=== PATIENT | male | born 1960 | race Caucasian/White ===

== ENCOUNTER 2017-02-07 10:06 | Emergency (ER) | payer OTHER ==
[2017-02-07 11:23] LABS: Hematocrit 41 % (42-52); Hemoglobin 14.5 g/dl (14.0-18.0); Mean Corpuscular HGB Conc 36 g/dl (31-36); Mean Corpuscular Hemoglobin 31 pg (27-31); Mean Corpuscular Volume 86 fL (80-94); Mean Platelet Volume 8 um3 (7.4-10.4); Red Blood Count 4.75 10^6/ul (4.0-5.4); Red Cell Distribution Width 13 % (10.5-15); White Blood Count 4.7 10^3/ul (3.5-10.8)
[2017-02-07 11:38] LABS: Albumin 4.2 g/dL (3.2-5.2); BUN/Creatinine Ratio 12.6 (8-20); C Reactive Protein 1.67 mg/L (< 5.00); Calcium 10.1 mg/dL (8.6-10.3); EGFR African American 88.1 (>60); EGFR Non-African American 68.5 (>60); Globulin 3.3 g/dL (2-4); Total Bilirubin 0.5 mg/dL (0.2-1.0); Total Protein 7.5 g/dL (6.4-8.9)
[2017-02-07 11:43] LABS: Potassium 2.7 mmol/L (3.5-5.0)
[2017-02-07] MEDS ORDERED: KCL 20 MEQ/100 ML IVPREMIX* 20 MEQ/100 ML BAG IV ONE (12:10)
[2017-02-07] MEDS ORDERED: Potassium Chlor TAB* 20 MEQ TAB.ER PO ONE (12:10)
[2017-02-07 15:22] VITALS: BP 119/102
--- NOTE | 2017-02-07 15:25 | ED ---
Claudio Longoria Nikita, scribed for Reynaldo Vincent MD on 02/07/17 at 1057 . Throat Pain/Nasal Congestion - HPI Summary HPI Summary: This patient is a 56 year old M presenting to ED with a chief complaint of L ear pain since 8 days ago. The CC is described as a humming feeling and ringing. The patient rates the pain 3/10 in severity. Symptoms aggravated by movement of his head. Symptoms alleviated by nothing (pt was on AUGMENTIN PO AND CIPRODEX given by Dr. Greenberg that did not relieve pain). Patient reports dizziness (has worsened earlier today) and fever in the afternoon. Pt was sent to ED by Dr. Greenberg for CT of L ear. Pt was given Doxycycline PO, Augmentin PO , and Ciprodex which did not help alleviate symptoms. 1 week ago, pt was given Amoxicillin (3 days) by [facility] 1 week ago. PMHx of HTN, HLD, and asthma. - History of Current Complaint Chief Complaint: EDEarPain Time Seen by Provider: 02/07/17 10:16 Hx Obtained From: Patient Onset/Duration: Sudden Onset, Lasting Weeks - 8 days ago, Still Present Severity: Mild - 3/10 - Allergies/Home Medications Allergies/Adverse Reactions: Allergies Allergy/AdvReac Type Severity Reaction Status Date / Time No Known Allergies Allergy Verified 08/04/16 08:21 PMH/Surg Hx/FS Hx/Imm Hx Endocrine/Hematology History: Denies: Hx Diabetes, Hx Anemia Cardiovascular History: Reports: Hx Hypertension - MEDICATED Denies: Hx Pacemaker/ICD Respiratory History: Reports: Hx Asthma - MEDICATED GI History: Denies: Hx Jaundice Sensory History: Denies: Hx Hearing Aid Psychiatric History: Denies: Hx Panic Disorder - Cancer History Cancer Type, Location and Year: MELANOMA REMOVED 2007 - Surgical History Surgery Procedure, Year, and Place: sinus surgery. right knee atrhroscopy. appendectomy. eye surgery-LAZY EYE REPAIR. LSP LAMINECTOMY surgery Infectious Disease History: No Infectious Disease History: Denies: Traveled Outside the [place] in Last 30 Days - Family History Known Family History: Positive: Cardiac Disease, Hypertension - Social History Alcohol Use: Occasionally Substance Use Type: Reports: None Smoking Status (MU): Never Smoked Tobacco Review of Systems Positive: Fever Positive: Other - L ear pain ("humming feeling" and ringing) Neurological: Other - Dizziness (worsened since earlier today) All Other Systems Reviewed And Are Negative: Yes Physical Exam Triage Information Reviewed: Yes Vital Signs On Initial Exam: Initial Vitals Temp Pulse Resp BP Pulse Ox 97.2 F 81 16 159/96 100 02/07/17 10:08 02/07/17 10:08 02/07/17 10:08 02/07/17 10:08 02/07/17 10:08 Vital Signs Reviewed: Yes Appearance: Positive: Well-Appearing, No Pain Distress Skin: Positive: Warm, Skin Color Reflects Adequate Perfusion, Dry Head/Face: Positive: Normal Head/Face Inspection Eyes: Positive: Normal ENT: Positive: TM bulging - a little, Other - Pinna is diffusely a little swollen, tender over tragus Neck: Positive: Supple, Nontender Respiratory/Lung Sounds: Positive: Clear to Auscultation, Breath Sounds Present Cardiovascular: Positive: RRR Abdomen Description: Positive: Nontender, Soft Bowel Sounds: Positive: Present Musculoskeletal: Positive: Normal Neurological: Positive: Normal, Sensory/Motor Intact, Alert, Oriented to Person Place, Time, CN Intact II-III Psychiatric: Positive: Affect/Mood Appropriate - [place] Coma Scale Coma Scale Total: 15 Diagnostics - Vital Signs Vital Signs Temp Pulse Resp BP Pulse Ox 02/07/17 10:08 97.2 F 81 16 159/96 100 - Laboratory Lab Results: Lab Results 02/07/17 02/07/17 Range/Units 11:13 11:13 WBC 4.7 (3.5-10.8) 10^3/ul RBC 4.75 (4.0-5.4) 10^6/ul Hgb 14.5 (14.0-18.0) g/dl Hct 41 L (42-52) % MCV 86 (80-94) fL MCH 31 (27-31) pg MCHC 36 (31-36) g/dl RDW 13 (10.5-15) % Plt Count 259 (150-450) 10^3/ul MPV 8 (7.4-10.4) um3 Neut % (Auto) 65.3 (38-83) % Lymph % (Auto) 19.5 L (25-47) % [place] % (Auto) 10.7 H (1-9) % Eos % (Auto) 3.3 (0-6) % Baso % (Auto) 1.2 (0-2) % Absolute Neuts (auto) 3.0 (1.5-7.7) 10^3/ul Absolute Lymphs (auto) 0.9 L (1.0-4.8) 10^3/ul Absolute Monos (auto) 0.5 (0-0.8) 10^3/ul Absolute Eos (auto) 0.2 (0-0.6) 10^3/ul Absolute Basos (auto) 0.1 (0-0.2) 10^3/ul Absolute Nucleated RBC 0 10^3/ul Nucleated RBC % 0 Sodium 133 (133-145) mmol/L Potassium 2.7 L* (3.5-5.0) mmol/L Chloride 97 L (101-111) mmol/L Carbon Dioxide 29 (22-32) mmol/L Anion Gap 7 (2-11) mmol/L BUN 14 (6-24) mg/dL Creatinine 1.11 (0.67-1.17) mg/dL Est GFR ( Amer) 88.1 (>60) Est GFR (Non-Af Amer) 68.5 (>60) BUN/Creatinine Ratio 12.6 (8-20) Glucose 124 H (70-100) mg/dL Calcium 10.1 (8.6-10.3) mg/dL Total Bilirubin 0.50 (0.2-1.0) mg/dL AST 26 (13-39) U/L ALT 36 (7-52) U/L Alkaline Phosphatase 50 (34-104) U/L C-Reactive Protein 1.67 (< 5.00) mg/L Total Protein 7.5 (6.4-8.9) g/dL Albumin 4.2 (3.2-5.2) g/dL Globulin 3.3 (2-4) g/dL Albumin/Globulin Ratio 1.3 (1-3) Result Diagrams: 02/07/17 11:13 02/07/17 11:13 Lab Statement: Any lab studies that have been ordered have been reviewed, and results considered in the medical decision making process. - CT Temporal bone CT Interpretation Completed By: Radiologist - ED physician has reviewed this radiology report and agrees. EENT Course/Dx - Course Course Of Treatment: Mr. Jefferson has had a refractory left otitis externa and has developed vertiginous symptoms. He was sent in by his PMD for CT to R/O and abscess or mastoiditis. His CT showed only a small amount of fluid in his middle ear. His K was quite low likely from his HCTZ and this was replaced. He will continue the antibiotics and F/U with Dr. Greenberg. - Diagnoses Provider Diagnoses: Otitis externa Discharge - Discharge Plan Condition: Stable Disposition: HOME Prescriptions: Meclizine TAB* [Antivert 12.5 TAB*] 25 mg PO TID PRN #20 tab PRN Reason: Dizziness Patient Education Materials: Otitis Externa (ED), Vertigo (ED) Referrals: Nima Greenberg MD [Primary Care Provider] - 3 Days The documentation as recorded by the Claudio mcknight Nikita accurately reflects the service I personally performed and the decisions made by , Reynaldo Vincent MD.
--- NOTE | 2017-02-09 07:48 | RAD ---
HISTORY: Left ear pain and vertigo COMPARISONS: None TECHNIQUE: Multiple contiguous axial CT scans of the temporal bones were obtained without intravenous contrast, with coronal and sagittal multiplanar reformations. FINDINGS: RIGHT: EXTERNAL CANAL: Normal. No stenosis or soft tissue abnormality. TYMPANIC MEMBRANE: Normal. No thickening or retraction. OSSICLES: Normal. No erosion. WINDOWS: Normal. No narrowing. MIDDLE EAR: Normal. No abnormal soft tissue or fluid. The scutum is sharp. Prussak's space is clear. 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 MASTOID: Normal. No fluid, sclerosis, or soft tissue abnormality. INNER EAR: Normal. FACIAL CANAL: Normal. No dehiscence. IAC: Normal. No expansion or asymmetry. JUGULAR FORAMEN: Normal. No expansion or erosion. CAROTID CANAL: Normal. No erosion LEFT: EXTERNAL CANAL: Normal. No stenosis or soft tissue abnormality. TYMPANIC MEMBRANE: Normal. No thickening or retraction. OSSICLES: Normal. No erosion. WINDOWS: Normal. No narrowing. MIDDLE EAR: Normal. No abnormal soft tissue or fluid. The scutum is sharp. Prussak's space is clear. The middle ear fluid noted in the prior report is not clearly visualized on the current examination. 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 MASTOID: Normal. No fluid, sclerosis, or soft tissue abnormality. INNER EAR: Normal. FACIAL CANAL: Normal. No dehiscence. IAC: Normal. No expansion or asymmetry. JUGULAR FORAMEN: Normal. No expansion or erosion. CAROTID CANAL: Normal. No erosion ADDITIONAL FINDINGS: There is post surgical change to the paranasal sinuses. Consistent noted is an arachnoid cyst of the left middle cranial fossa. The visualized portion of the brain is otherwise unremarkable. IMPRESSION: UNREMARKABLE CT OF THE TEMPORAL BONES BILATERALLY. NO MASTOID EFFUSION OR PERIMASTOID FLUID COLLECTIONS.
== END 2017-02-07 15:20 | disposition home or self-care (01) ==
LOC: ED 10:06
DX: H60.92 Unspecified otitis externa, left ear (principal); H92.02 Otalgia, left ear; R50.9 Fever, unspecified; R42 Dizziness and giddiness
CPT/HCPCS: 36415; 70480; 80053; 85025; 86140; 99282; A9270-GY; J3480

== ENCOUNTER 2017-03-13 10:15 | Day surgery (SDC) | payer OTHER ==
--- NOTE | 2017-03-09 21:27 | HP ---
CC: Nima Greenberg MD; Trey Teixeira MD * ADMISSION HISTORY AND PHYSICAL: DATE OF ADMISSION: 03/13/17 ATTENDING SURGEON: Padmini Gifford MD * (DICTATED BY MIGUEL ANGEL MCCOLLUM) CHIEF COMPLAINT: Right inguinal hernia. HISTORY OF PRESENT ILLNESS: This is a 56-year-old hypertensive male who beginning about 3 to 4 weeks ago while splitting [employer] noted right groin discomfort. He described pain that occurred in the right groin and radiated to the back. He subsequently noticed a bulge in the right groin and was seen by Dr. Teixeira, who referred him to our office. Exam by Dr. Gifford on 03/03/17 confirmed the presence of a reducible right inguinal hernia. The hernia was mildly tender. He has not had any symptoms to suggest incarceration or strangulation. He has not had any changes in GI or function. Dr. Gifford discussed with him the indications, risks, benefits, and alternatives of surgery and he would like to proceed as scheduled with open repair of right inguinal hernia with mesh. PAST MEDICAL HISTORY: Hypertension, allergies and asthma (well controlled), hyperlipidemia, GERD (mostly controlled by lifestyle), systemic lupus erythematosus (cutaneous manifestations only), BPH, pancreatitis (5 to 6 years ago, suspected to be caused by an antihypertensive he was taking at that time), melanoma (of the back, resected in 2006 with regular followup). PAST SURGICAL HISTORY: Previous surgeries, excision of melanoma, lumbar diskectomy, sinus surgery. He has also undergone FNA x2 of a benign thyroid nodule. No report of surgical or anesthesia complications. CURRENT MEDICATIONS: 1. Hydrochlorothiazide 50 mg 2 tablets daily extended release. 2. Potassium chloride 20 mEq daily. 3. Rosuvastatin 5 mg daily. 4. Nasacort 2 sprays each nostril daily. 5. 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 6. Albuterol MDI 2 puffs p.r.n. (uses rarely). 7. Advair Diskus 100/50 inhalation once daily. 8. Montelukast 10 mg daily. 9. Losartan 100 mg daily. 10. Amlodipine 10 mg daily. DRUG ALLERGIES: None known. FAMILY HISTORY: Positive for hypertension and his father had a thoracic aneurysm. There is no known family history of anesthesia problems, bleeding, or clotting disorders. SOCIAL HISTORY: The patient is . 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 He denies use of tobacco. He drinks on an average 2 to 3 drinks per day. He denies other recreational drug use. REVIEW OF SYSTEMS: General: No recent constitutional symptoms or acute illnesses other than an episode of left ear infection with resultant vertigo, which has improved significantly after antibiotic treatment. He is scheduled to see the ENT office for followup. HEENT: As above, no additions. Cardiovascular: No chest pain, palpitations, history of PA or angina. He did undergo an echocardiogram in 2014, which was a normal study. Respiratory: No recent exacerbations of his asthma, which is well controlled. GI: Occasional nocturnal GERD, but not currently required any antacids or acid blockade. No recurrences of his pancreatitis. Colonoscopy done 2 years ago. It was recommended 10-year followup. : BPH and followed regularly by Dr. Teixeira with normal PSAs. Endocrine: No diabetes or thyroid dysfunction. He has been followed for a thyroid nodule with regular surveillance ultrasound. PHYSICAL EXAMINATION GENERAL: Well-nourished, obese male, in no acute distress. VITAL SIGNS: Height 73 inches, weight 245 pounds, BMI 32, blood pressure 120/76 , pulse 76, respirations 16. HEENT: Pupils equal and round, reactive. EOMs intact. No conjunctival pallor. No intraoral lesions. NECK: No lymphadenopathy in the cervical or supraclavicular regions. LUNGS: Clear to auscultation. No rales or wheezes. HEART: Regular rate and rhythm. No murmur noted. ABDOMEN: Soft, nontender to palpation. No palpable masses or organomegaly other than the right groin hernia as previously described. GENITALIA: Otherwise, not done. RECTAL: Otherwise, not done. BACK: No spinous process or CVA tenderness. EXTREMITIES: No edema. NEUROLOGICAL: Grossly intact. SKIN: He does have multiple erythematous skin lesions measuring 1 cm or less primarily scattered over his forearms and upper chest related to areas of sun exposure. No other suspicious rashes or lesions. Complete skin survey was not done. IMPRESSION: Right inguinal hernia. PLAN: Open repair of right inguinal hernia with mesh. MIGUEL ANGEL MCCOLLUM [id number]/[facility] #: [id number] VINCENT
[~2017-03-13 10:15] MED LIST: Buffered Lidocaine 0.9% SYRIN* 5 ML/SYR SYRINGE INTRADERM ONE; Famotidine IV* 10 MG/ML 2 ML (20 mg) IV ONE; Morphine INJ* 2 MG/ML 1 ML CARPUJECT IV PRN; PROCHLORPERAZINE INJ 5 MG/ML 2 ML VIAL IV PRN; Scopolamine 1.5 mg* PATCH TRANSDERM PRN
[2017-03-13] MEDS ORDERED: ceFAZolin 2 GM PREMIX (*) 50 ML IVPB ONE (10:29)
[2017-03-13] MEDS ORDERED: Buffered Lidocaine 0.9% SYRIN* 5 ML/SYR SYRINGE ONE (10:29)
[2017-03-13] MEDS ORDERED: Famotidine IV* 10 MG/ML 2 ML (20 mg) ONE (10:29)
[2017-03-13] MEDS ORDERED: KETAMINE HCL* 50 MG/ML 10 ML VIAL ONE (10:57)
[2017-03-13] MEDS ORDERED: Midazolam* 1 MG/ML 10 ML VIAL (10 MG) ONE (10:57)
[2017-03-13] MEDS ORDERED: fentaNYL* 50 MCG/ML 2 ML VIAL (100 MCG VIAL) ONE ×2 (10:57→13:27)
[2017-03-13] MEDS ORDERED: Lidocaine 1% INJ* 10 MG/ML 30 ML SDV ONE (11:56)
[2017-03-13] MEDS ORDERED: Bupivacaine 0.5% SDV PF* 30 ML VIAL ONE (11:56)
[2017-03-13] MEDS ORDERED: Lidocaine 1% MPF wEPI 200,000* 30 ML SDV ONE (12:18)
[2017-03-13] MEDS ORDERED: Ketorolac INJ* 30 MG/ML 1 ML VIAL ONE (12:33)
[2017-03-13] MEDS ORDERED: Dexamethasone IV* 4 MG/ML 1 ML (4 MG) ONE (12:33)
[2017-03-13] MEDS ORDERED: Ondansetron INJ* 2 MG/ML VIAL ONE (12:33)
[2017-03-13] MEDS ORDERED: Propofol* 10 MG/ML 20 ML BTL IV PUSH ONE (12:33)
[2017-03-13] MEDS ORDERED: Lidocaine 2% PF * 5 ML VIAL ONE (12:34)
[2017-03-13] MEDS ORDERED: Lidocaine 2% PF* 10 ML AMP ONE (12:34)
[2017-03-13] MEDS ORDERED: hydrALAZINE IV* 20 MG/ML VIAL ONE (13:01)
[2017-03-13] MEDS ORDERED: oxyCODONE/Acetamin 5/325 MG* TAB PO PRN (13:27)
[2017-03-13] MEDS ORDERED: oxyCODONE/Acetamin 5/325 MG* TAB ONE ×2 (13:27→14:09)
[2017-03-13] MEDS: oxyCODONE/Acetamin 5/325 MG* TAB PO PRN ×2 (13:28→14:10)
[2017-03-13] MEDS: fentaNYL* 50 MCG/ML 2 ML VIAL (100 MCG VIAL) IV PRN ×4 (13:28→14:10)
[2017-03-13 14:52] VITALS: BP 137/87
--- NOTE | 2017-03-14 01:39 | OP ---
CC: [facility]; Dr. Nima Greenberg * DATE OF OPERATION: 03/13/17 - [facility] DATE OF : 60 SURGEON: Padmini Gifford MD MANUFACTURER'S REPRESENTATIVE: MIGUEL ANGEL Jimenez ANESTHESIOLOGIST: Familia Muller MD ANESTHESIA: MAC PRE-OP DIAGNOSIS: Right inguinal hernia. POST-OP DIAGNOSIS: Right inguinal hernia. OPERATIVE PROCEDURE: Right inguinal hernia repair open with mesh. INDICATIONS: Mr. Jefferson is a 56-year-old male who presented to the office with symptomatic inguinal hernia prompting the plan for surgical intervention. DESCRIPTION OF PROCEDURE: He was brought to the operating room, placed on the OR table in a supine position and given IV sedation and right groin was prepped and draped in the usual sterile fashion. After infiltrating with local anesthetic, an incision was made in the right inguinal area and subcutaneous tissue was divided with electrocautery down to the level of the external oblique fascia. This was then incised and flaps were developed superiorly and inferiorly. The ilioinguinal nerve was identified and retracted superiorly over the external flap after having been dissected free from surrounding tissue. The cord structures were then encircled with a [place] drain. A second nerve fiber was identified on the surface of the cord. This was monitored and protected during the surgery. There was an obvious indirect hernia sac, this was grasped with clamp and dissected free from the cord using combination of blunt, sharp and electrocautery dissection. In the process of doing this, the hernia sac was opened and so once it was completely freed from the cord structures, the dome of the sac was amputated and the remaining portion was suture ligated and closed. The sac was then reduced into the deep inguinal ring and Perfix cone of mesh was placed in the deep inguinal ring and secured superiorly to the conjoint tendon and inferiorly to the shelving portion of the inguinal ligament. The patch of mesh was then placed on the floor of the inguinal canal and secured medially to the pubic tubercle, superiorly to conjoint tendon and inferiorly to the shelving portion of the inguinal ligaments. Its tails were brought around the cord and secured laterally to the colon that had been placed in the deep inguinal ring. The ilioinguinal nerve was replaced in the inguinal canal and noted to be free of any suture material. Then the flaps of the external oblique fascia were closed over the cord using 2-0 Vicryl stitches and then subcutaneous tissue was reapproximated with 3-0 Vicryl and the skin was closed with 4-0 Prolene in a subcuticular fashion. Steri-Strips and a dry sterile dressing were applied. All sponge and instrument counts were correct. The patient tolerated the procedure well and was transferred to Recovery in a stable condition. [id number]/[facility] #: [id number]
[2017-03-16] MEDS ORDERED: Scopolomine PATCH Remove* 1 NOTE MISC PATCH OFF ONE (05:44)
== END 2017-03-13 15:22 | disposition home or self-care (01) ==
LOC: OR 10:15
PROVIDERS: ATTEND Surgery
DX: K40.90 Unilateral inguinal hernia, without obstruction or gangrene, not specified as recurrent (principal); I10 Essential (primary) hypertension; J45.909 Unspecified asthma, uncomplicated; E78.5 Hyperlipidemia, unspecified; M32.9 Systemic lupus erythematosus, unspecified; K21.9 Gastro-esophageal reflux disease without esophagitis; Z85.820 Personal history of malignant melanoma of skin; Z79.899 Other long term (current) drug therapy
CPT/HCPCS: A9270-GY; C1781; J0360; J0690; J1100; J1885; J2001; J2250; J2405; J2704; J3010